=== PATIENT | male | born 1985 | race Caucasian/White ===

== ENCOUNTER 2020-06-01 22:29 | Inpatient (IN) | payer BC ==
[~2020-06-01] VITALS: Ht 165.1 cm; Wt 86.7 kg
[2020-06-01] MEDS ORDERED: ACETAMINOPHEN 325MG TABLET PO STA (23:14)
[2020-06-01] MEDS ORDERED: SODIUM CHLORIDE 0.9% 1,000 ML IV ONE (23:15)
[2020-06-01 23:52] LABS: HEMATOCRIT. 40.3 % (42.0-52.0); HEMOGLOBIN. 13.8 g/dL (14.0-18.0); MEAN CORPUSCULAR VOLUME 87.4 fL (80.0-94.0); MEAN PLATELET VOLUME 7.2 fl (7.4-10.4); PLATELET 317 x1000/uL (130-400); RED BLOOD CELL COUNT 4.61 mill/uL (4.7-6.1); RED CELL DISTRIBUTION WIDTH 13.4 % (11.6-14.6)
[2020-06-01 23:59] LABS: CHLORIDE 109 mEq/L (98-107)
[2020-06-02] MEDS ORDERED: AZITHROMYCIN 500 MG in DEXT 5% WATER 250 ML IV ONE (02:00)
[2020-06-02] MEDS ORDERED: CEFTRIAXONE 1 G PREMIX 50 ML IV ONE (02:00)
[2020-06-02 02:18] LABS: PLATELET ESTIMATE NORMAL
[2020-06-03 01:53] VITALS: BP 131/87
[2020-06-03] MEDS ORDERED: ENOXAPARIN 40MG/0.4ML SYR SUBCUT SCH (02:00)
[2020-06-03] MEDS: CEFTRIAXONE 1,000 MG in DEXTROSE 5% WATER 50 ML IV SCH (02:43)
[2020-06-03] MEDS: AZITHROMYCIN 500MG in DEXTROSE 5% WATER 250ML IV SCH (04:29)
[2020-06-03 05:01] VITALS: BP 125/74
[2020-06-03 08:00] VITALS: BP 124/74
[2020-06-03] MEDS: FAMOTIDINE 20MG TABLET PO SCH ×2 (09:24→17:37)
[2020-06-03] MEDS: DEXAMETHASONE 10 MG/ML VIAL IV SCH (09:25)
[2020-06-03 12:00] VITALS: BP 119/78
[2020-06-03] MEDS ORDERED: HYDROCODONE/ACETAMINOPHEN 5/325MG TABLET PO PRN (16:00)
[2020-06-03] MEDS ORDERED: MAGNESIUM/ALUMINUM HYDROXIDE/SIMETHICONE 30ML UDC PO PRN (16:00)
[2020-06-03] MEDS ORDERED: CLONIDINE 0.1MG TABLET PO PRN (16:00)
[2020-06-03] MEDS ORDERED: DOCUSATE SODIUM 100MG CAPSULE PO PRN (16:00)
[2020-06-03] MEDS ORDERED: ONDANSETRON HCL 4MG/2ML INJ IV PRN (16:00)
[2020-06-03] MEDS ORDERED: ALBUTEROL 6.7GM HFA INHALER ORI PRN (18:00)
[2020-06-03 20:00] VITALS: BP 128/78
[2020-06-03] MEDS: ENOXAPARIN 40MG/0.4ML SYR SUBCUT SCH (20:40)
[2020-06-03 23:58] VITALS: BP 120/77
[2020-06-04] MEDS: CEFTRIAXONE 1,000 MG in DEXTROSE 5% WATER 50 ML IV SCH (01:46)
[2020-06-04 04:00] VITALS: BP 133/82
[2020-06-04] MEDS: AZITHROMYCIN 500MG in DEXTROSE 5% WATER 250ML IV SCH (04:45)
[2020-06-04 06:20] LABS: CHLORIDE 107 mEq/L (98-107)
[2020-06-04 06:26] LABS: PHOSPHORUS 3.5 mg/dL (2.5-4.9)
[2020-06-04 06:31] LABS: HEMATOCRIT. 42.4 % (42.0-52.0); HEMOGLOBIN. 14.6 g/dL (14.0-18.0); MEAN CORPUSCULAR HEMOGLOBIN 30.7 pg (28.0-32.0); MEAN CORPUSCULAR VOLUME 88.8 fL (80.0-94.0); MEAN PLATELET VOLUME 7.2 fl (7.4-10.4); PLATELET 394 x1000/uL (130-400); RED BLOOD CELL COUNT 4.77 mill/uL (4.7-6.1); RED CELL DISTRIBUTION WIDTH 13.9 % (11.6-14.6)
[2020-06-04 06:55] LABS: LDL CHOLESTEROL 70 mg/dL (5-100)
[2020-06-04 06:57] LABS: HDL CHOLESTEROL 27 mg/dL (40-59)
[2020-06-04 08:00] VITALS: BP 117/76
[2020-06-04] MEDS: ASCORBIC ACID 500 MG TABLET PO SCH ×2 (09:06→21:00)
[2020-06-04] MEDS: ZINC SULFATE 220 MG ( 50 ) CAPSULE PO SCH (09:06)
[2020-06-04] MEDS: FAMOTIDINE 20MG TABLET PO SCH ×2 (09:06→18:06)
[2020-06-04] MEDS: DEXAMETHASONE 10 MG/ML VIAL IV SCH (10:32)
[2020-06-04 12:00] VITALS: BP 127/81
[2020-06-04] MEDS ORDERED: GUAIFENESIN-DM 200MG-20MG/10ML UDC PO PRN (13:00)
[2020-06-04 16:00] VITALS: BP 125/77
[2020-06-04] MEDS ORDERED: IVERMECTIN 3 MG TABLET PO NR (18:00)
[2020-06-04] MEDS: BENZONATATE 100MG CAPSULE PO SCH ×2 (18:06→21:48)
[2020-06-04 20:01] VITALS: BP 114/79
[2020-06-04] MEDS: ENOXAPARIN 40MG/0.4ML SYR SUBCUT SCH (21:50)
[2020-06-04 22:43] LABS: PLATELET ESTIMATE NORMAL
[2020-06-05] VITALS: BP 110/74
[2020-06-05] MEDS: CEFTRIAXONE 1,000 MG in DEXTROSE 5% WATER 50 ML IV SCH (02:14)
[2020-06-05 04:06] VITALS: BP 105/73
[2020-06-05] MEDS: BENZONATATE 100MG CAPSULE PO SCH ×3 (05:16→21:06)
[2020-06-05] MEDS: AZITHROMYCIN 500MG in DEXTROSE 5% WATER 250ML IV SCH (05:16)
[2020-06-05 06:57] LABS: CHLORIDE 107 mEq/L (98-107)
[2020-06-05 06:59] LABS: HEMATOCRIT. 41.8 % (42.0-52.0); HEMOGLOBIN. 14.5 g/dL (14.0-18.0); MEAN CORPUSCULAR HEMOGLOBIN 30.5 pg (28.0-32.0); MEAN PLATELET VOLUME 7.1 fl (7.4-10.4); PLATELET 421 x1000/uL (130-400); RED BLOOD CELL COUNT 4.75 mill/uL (4.7-6.1); RED CELL DISTRIBUTION WIDTH 13.8 % (11.6-14.6)
[2020-06-05 08:00] VITALS: BP 114/77
[2020-06-05] MEDS: DEXAMETHASONE 10 MG/ML VIAL IV SCH (08:39)
[2020-06-05] MEDS: ZINC SULFATE 220 MG ( 50 ) CAPSULE PO SCH (08:58)
[2020-06-05] MEDS: ASCORBIC ACID 500 MG TABLET PO SCH ×2 (08:58→21:06)
[2020-06-05] MEDS: FAMOTIDINE 20MG TABLET PO SCH ×3 (09:00→16:45)
[2020-06-05 13:16] LABS: PLATELET ESTIMATE SLIGHTLY INCREASED
[2020-06-05] MEDS ORDERED: THROAT LOZENGES-BENZOCAINE/MENTH/CETYLPYRD CL LOZENGES MM PRN (16:00)
[2020-06-05 20:00] VITALS: BP 111/69
[2020-06-05] MEDS: ENOXAPARIN 40MG/0.4ML SYR SUBCUT SCH (21:06)
[2020-06-06] VITALS: BP 116/81
[2020-06-06] MEDS: CEFTRIAXONE 1,000 MG in DEXTROSE 5% WATER 50 ML IV SCH (01:37)
[2020-06-06 04:00] VITALS: BP 128/76
[2020-06-06] MEDS: BENZONATATE 100MG CAPSULE PO SCH ×3 (05:25→21:40)
[2020-06-06] MEDS: AZITHROMYCIN 500MG in DEXTROSE 5% WATER 250ML IV SCH (05:25)
[2020-06-06 08:00] VITALS: BP 121/75
[2020-06-06] MEDS: ZINC SULFATE 220 MG ( 50 ) CAPSULE PO SCH (08:56)
[2020-06-06] MEDS: ASCORBIC ACID 500 MG TABLET PO SCH ×2 (08:56→21:40)
[2020-06-06] MEDS: FAMOTIDINE 20MG TABLET PO SCH ×2 (08:56→17:31)
[2020-06-06] MEDS: DEXAMETHASONE 10 MG/ML VIAL IV SCH (09:52)
[2020-06-06 12:00] VITALS: BP 112/69
[2020-06-06 16:00] VITALS: BP 115/62
[2020-06-06] MEDS ORDERED: IVERMECTIN 3 MG TABLET PO NR (17:00)
[2020-06-06 20:00] VITALS: BP 115/78
[2020-06-06] MEDS: ENOXAPARIN 40MG/0.4ML SYR SUBCUT SCH (21:40)
[2020-06-07] VITALS: BP 116/74
[2020-06-07 04:00] VITALS: BP 108/61
[2020-06-07] MEDS: BENZONATATE 100MG CAPSULE PO SCH ×2 (05:24→14:42)
[2020-06-07 08:00] VITALS: BP 117/75
[2020-06-07] MEDS: ZINC SULFATE 220 MG ( 50 ) CAPSULE PO SCH (09:45)
[2020-06-07] MEDS: DEXAMETHASONE 10 MG/ML VIAL IV SCH (09:45)
[2020-06-07] MEDS: FAMOTIDINE 20MG TABLET PO SCH ×2 (09:45→18:11)
[2020-06-07] MEDS: ASCORBIC ACID 500 MG TABLET PO SCH ×2 (09:45→21:38)
[2020-06-07 12:00] VITALS: BP 113/72
[2020-06-07 16:00] VITALS: BP 116/71
[2020-06-07 20:00] VITALS: BP 115/67
[2020-06-07] MEDS: ENOXAPARIN 40MG/0.4ML SYR SUBCUT SCH (21:38)
[2020-06-08] VITALS: BP 112/77
[2020-06-08 04:00] VITALS: BP 120/78
[2020-06-08] MEDS: ASCORBIC ACID 500 MG TABLET PO SCH ×2 (10:13→21:22)
[2020-06-08] MEDS: DEXAMETHASONE 10 MG/ML VIAL IV SCH (10:13)
[2020-06-08] MEDS: FAMOTIDINE 20MG TABLET PO SCH ×2 (10:13→18:13)
[2020-06-08] MEDS: ZINC SULFATE 220 MG ( 50 ) CAPSULE PO SCH (10:14)
[2020-06-08 16:00] VITALS: BP 117/83
[2020-06-08 20:00] VITALS: BP 116/65
[2020-06-08] MEDS: ENOXAPARIN 40MG/0.4ML SYR SUBCUT SCH (21:22)
[2020-06-09] VITALS: BP 120/76
[2020-06-09 04:00] VITALS: BP 115/62
[2020-06-09 08:00] VITALS: BP 120/77
[2020-06-09] MEDS: ASCORBIC ACID 500 MG TABLET PO SCH (09:34)
[2020-06-09] MEDS: FAMOTIDINE 20MG TABLET PO SCH ×2 (09:35→16:34)
[2020-06-09] MEDS: ZINC SULFATE 220 MG ( 50 ) CAPSULE PO SCH (09:35)
[2020-06-09] MEDS: DEXAMETHASONE 10 MG/ML VIAL IV SCH (09:35)
[2020-06-09 12:00] VITALS: BP 101/69
[2020-06-09 16:00] VITALS: BP 107/63
[2020-06-09] MEDS ORDERED: IVERMECTIN 3 MG TABLET PO ONE (16:45)
[2020-06-09 20:21] LABS: HEMATOCRIT. 46.1 % (42.0-52.0); MEAN CORPUSCULAR HEMOGLOBIN 30.5 pg (28.0-32.0); MEAN CORPUSCULAR VOLUME 87.7 fL (80.0-94.0); MEAN PLATELET VOLUME 7.5 fl (7.4-10.4); PLATELET 622 x1000/uL (130-400); RED BLOOD CELL COUNT 5.26 mill/uL (4.7-6.1); RED CELL DISTRIBUTION WIDTH 13.6 % (11.6-14.6)
[2020-06-09 20:28] LABS: CHLORIDE 105 mEq/L (98-107)
[2020-06-09] MEDS: ENOXAPARIN 40MG/0.4ML SYR SUBCUT SCH (21:00)
[2020-06-09 22:08] LABS: PLATELET ESTIMATE MARKEDLY INCREASED
[2020-06-10] MEDS: ASCORBIC ACID 500 MG TABLET PO SCH ×3 (00:36→21:42)
[2020-06-10 08:00] VITALS: BP 116/66
[2020-06-10] MEDS: ZINC SULFATE 220 MG ( 50 ) CAPSULE PO SCH (09:28)
[2020-06-10] MEDS: DEXAMETHASONE 10 MG/ML VIAL IV SCH (09:28)
[2020-06-10] MEDS: FAMOTIDINE 20MG TABLET PO SCH ×2 (09:29→16:47)
[2020-06-10 12:00] VITALS: BP 110/61
[2020-06-10] MEDS: BENZONATATE 100MG CAPSULE PO SCH ×2 (13:16→21:42)
[2020-06-10 16:00] VITALS: BP 136/78
[2020-06-10 20:00] VITALS: BP 115/69
[2020-06-10] MEDS: ENOXAPARIN 40MG/0.4ML SYR SUBCUT SCH (21:42)
[2020-06-11] VITALS: BP 111/67
[2020-06-11 04:00] VITALS: BP 114/70
[2020-06-11] MEDS: BENZONATATE 100MG CAPSULE PO SCH ×3 (06:08→22:39)
[2020-06-11 08:00] VITALS: BP 107/77
[2020-06-11] MEDS: ASCORBIC ACID 500 MG TABLET PO SCH ×2 (08:38→22:38)
[2020-06-11] MEDS: DEXAMETHASONE 10 MG/ML VIAL IV SCH (08:38)
[2020-06-11] MEDS: ZINC SULFATE 220 MG ( 50 ) CAPSULE PO SCH (08:38)
[2020-06-11] MEDS: FAMOTIDINE 20MG TABLET PO SCH ×2 (08:38→17:42)
[2020-06-11 16:00] VITALS: BP 116/73
[2020-06-11] MEDS ORDERED: IVERMECTIN 3 MG TABLET PO ONE (16:45)
[2020-06-11 20:00] VITALS: BP 120/70
[2020-06-11] MEDS: ENOXAPARIN 40MG/0.4ML SYR SUBCUT SCH (22:38)
[2020-06-12] VITALS (7 sets, daily range): BP systolic 88–129; BP diastolic 48–77
[2020-06-12] MEDS: BENZONATATE 100MG CAPSULE PO SCH ×2 (05:20→13:45)
[2020-06-12] MEDS: FAMOTIDINE 20MG TABLET PO SCH ×2 (08:40→17:46)
[2020-06-12] MEDS: ZINC SULFATE 220 MG ( 50 ) CAPSULE PO SCH (08:40)
[2020-06-12] MEDS: ASCORBIC ACID 500 MG TABLET PO SCH (08:41)
[2020-06-12] MEDS: DEXAMETHASONE 10 MG/ML VIAL IV SCH (08:41)
[2020-06-12] MEDS: METHYLPREDNISOLONE SOD SUCC 40 MG/ML VIAL IV SCH (17:46)
[2020-06-13] MEDS: BENZONATATE 100MG CAPSULE PO SCH ×4 (00:50→21:25)
[2020-06-13] MEDS: ENOXAPARIN 40MG/0.4ML SYR SUBCUT SCH ×2 (00:51→21:27)
[2020-06-13] MEDS: ASCORBIC ACID 500 MG TABLET PO SCH ×3 (00:51→21:25)
[2020-06-13 04:00] VITALS: BP 115/67
[2020-06-13 08:00] VITALS: BP 112/73
[2020-06-13] MEDS: METHYLPREDNISOLONE SOD SUCC 40 MG/ML VIAL IV SCH ×2 (08:30→17:54)
[2020-06-13] MEDS: ZINC SULFATE 220 MG ( 50 ) CAPSULE PO SCH (08:30)
[2020-06-13] MEDS: FAMOTIDINE 20MG TABLET PO SCH ×2 (08:31→17:53)
[2020-06-13 10:24] LABS: BG BASE EXCESS 0.5 mmol/L (-2.0-2.0); BG CARBOXYHEMOGLOBIN 0.5 % (0.5-1.5); BG DEOXYHEMOGLOBIN 8.1 % (0.0-5.0); BG HCO3 ACT 24.9 mmol/L (22.0-26.0); BG METHEMOGLOBIN 0.2 % (0.0-1.5); BG OXYGEN SATURATION 91.8 % (92.0-98.5); BG OXYHEMOGLOBIN 91.2 % (94.0-97.0); BG PCO2 39.7 mmHg (35.0-45.0); BG PH 7.416 (7.350-7.450); BG PO2 63.1 mmHg (75.0-100.0); BG SAMPLE SITE RIGHT RADIAL; BG TOTAL HEMOGLOBIN 15.4 g/dL (12.0-18.0); BG VENT MODE MASK - NRB
[2020-06-13 12:00] VITALS: BP 127/74
[2020-06-13 16:00] VITALS: BP 126/71
[2020-06-13] MEDS: ACETAMINOPHEN 325MG TABLET PO PRN (17:54)
[2020-06-13 20:00] VITALS: BP 114/75
[2020-06-14] VITALS: BP 116/67
[2020-06-14 04:00] VITALS: BP 120/66
[2020-06-14] MEDS: BENZONATATE 100MG CAPSULE PO SCH ×3 (06:50→21:35)
[2020-06-14 08:00] VITALS: BP 116/74
[2020-06-14] MEDS: ZINC SULFATE 220 MG ( 50 ) CAPSULE PO SCH (08:27)
[2020-06-14] MEDS: ASCORBIC ACID 500 MG TABLET PO SCH ×2 (08:27→21:34)
[2020-06-14] MEDS: FAMOTIDINE 20MG TABLET PO SCH ×2 (08:27→16:16)
[2020-06-14] MEDS: METHYLPREDNISOLONE SOD SUCC 40 MG/ML VIAL IV SCH ×2 (08:27→16:16)
[2020-06-14 12:00] VITALS: BP 133/52
[2020-06-14 16:00] VITALS: BP 122/72
[2020-06-14 20:00] VITALS: BP 123/59
[2020-06-14] MEDS: ENOXAPARIN 30MG/0.3ML SYR SUBCUT SCH (21:35)
[2020-06-15] VITALS: BP 109/68
[2020-06-15 04:00] VITALS: BP 110/61
[2020-06-15] MEDS: BENZONATATE 100MG CAPSULE PO SCH ×3 (06:42→21:49)
[2020-06-15 08:00] VITALS: BP 111/70
[2020-06-15] MEDS: FAMOTIDINE 20MG TABLET PO SCH ×2 (08:20→16:43)
[2020-06-15] MEDS: METHYLPREDNISOLONE SOD SUCC 40 MG/ML VIAL IV SCH ×2 (08:20→16:43)
[2020-06-15] MEDS: ASCORBIC ACID 500 MG TABLET PO SCH ×2 (08:20→21:49)
[2020-06-15] MEDS: ZINC SULFATE 220 MG ( 50 ) CAPSULE PO SCH (08:20)
[2020-06-15] MEDS: ENOXAPARIN 30MG/0.3ML SYR SUBCUT SCH ×2 (08:20→21:50)
[2020-06-15 12:00] VITALS: BP 116/65
[2020-06-15 16:00] VITALS: BP 116/67
[2020-06-15 20:00] VITALS: BP 131/85
[2020-06-16] VITALS: BP 108/56
[2020-06-16 06:00] VITALS: BP 113/62
[2020-06-16] MEDS: BENZONATATE 100MG CAPSULE PO SCH ×3 (06:16→21:56)
[2020-06-16] MEDS: METHYLPREDNISOLONE SOD SUCC 40 MG/ML VIAL IV SCH ×2 (07:48→16:55)
[2020-06-16] MEDS: ZINC SULFATE 220 MG ( 50 ) CAPSULE PO SCH (07:49)
[2020-06-16] MEDS: FAMOTIDINE 20MG TABLET PO SCH ×2 (07:49→16:55)
[2020-06-16] MEDS: ENOXAPARIN 30MG/0.3ML SYR SUBCUT SCH ×2 (07:54→21:56)
[2020-06-16 08:00] VITALS: BP 114/72
[2020-06-16] MEDS: ASCORBIC ACID 500 MG TABLET PO SCH ×2 (08:11→21:55)
[2020-06-16 11:52] VITALS: BP 114/70
[2020-06-16 16:00] VITALS: BP 121/72
[2020-06-16 20:00] VITALS: BP 123/77
[2020-06-17] VITALS: BP 120/71
[2020-06-17 04:00] VITALS: BP 117/71
[2020-06-17] MEDS: BENZONATATE 100MG CAPSULE PO SCH ×3 (06:19→21:36)
[2020-06-17 08:00] VITALS: BP 126/80
[2020-06-17] MEDS: ASCORBIC ACID 500 MG TABLET PO SCH ×2 (09:00→21:35)
[2020-06-17] MEDS: ZINC SULFATE 220 MG ( 50 ) CAPSULE PO SCH (09:32)
[2020-06-17] MEDS: METHYLPREDNISOLONE SOD SUCC 125 MG/2 ML VIAL IV SCH ×2 (09:32→21:35)
[2020-06-17] MEDS: ENOXAPARIN 30MG/0.3ML SYR SUBCUT SCH ×2 (09:32→21:36)
[2020-06-17] MEDS: FAMOTIDINE 20MG TABLET PO SCH ×2 (09:32→17:48)
[2020-06-17 12:00] VITALS: BP 116/74
[2020-06-17 16:00] VITALS: BP 120/71
[2020-06-17 22:00] VITALS: BP 128/77
[2020-06-18 06:00] VITALS: BP 129/75
[2020-06-18] MEDS: BENZONATATE 100MG CAPSULE PO SCH ×3 (06:58→22:29)
[2020-06-18 08:00] VITALS: BP 125/71
[2020-06-18] MEDS: ASCORBIC ACID 500 MG TABLET PO SCH ×3 (08:27→22:28)
[2020-06-18] MEDS: ENOXAPARIN 30MG/0.3ML SYR SUBCUT SCH ×2 (08:27→22:29)
[2020-06-18] MEDS: METHYLPREDNISOLONE SOD SUCC 125 MG/2 ML VIAL IV SCH ×2 (08:27→22:27)
[2020-06-18] MEDS: FAMOTIDINE 20MG TABLET PO SCH ×2 (08:27→16:21)
[2020-06-18] MEDS: ZINC SULFATE 220 MG ( 50 ) CAPSULE PO SCH (08:27)
[2020-06-18 11:57] VITALS: BP 116/73
[2020-06-18 15:57] VITALS: BP 120/73
[2020-06-18 22:00] VITALS: BP 111/68
[2020-06-19 06:00] VITALS: BP 116/73
[2020-06-19] MEDS: BENZONATATE 100MG CAPSULE PO SCH ×3 (06:18→22:31)
[2020-06-19 06:53] LABS: CHLORIDE 108 mEq/L (98-107)
[2020-06-19 07:16] LABS: HEMATOCRIT. 44.5 % (42.0-52.0); HEMOGLOBIN. 15.2 g/dL (14.0-18.0); MEAN CORPUSCULAR HEMOGLOBIN 30.7 pg (28.0-32.0); MEAN PLATELET VOLUME 8.3 fl (7.4-10.4); PLATELET 312 x1000/uL (130-400); RED BLOOD CELL COUNT 4.94 mill/uL (4.7-6.1); RED CELL DISTRIBUTION WIDTH 14.2 % (11.6-14.6)
[2020-06-19 08:00] VITALS: BP 121/77
[2020-06-19] MEDS: ENOXAPARIN 30MG/0.3ML SYR SUBCUT SCH ×2 (08:32→22:02)
[2020-06-19] MEDS: METHYLPREDNISOLONE SOD SUCC 125 MG/2 ML VIAL IV SCH ×2 (08:33→22:02)
[2020-06-19] MEDS: ASCORBIC ACID 500 MG TABLET PO SCH ×2 (08:33→22:02)
[2020-06-19] MEDS: ZINC SULFATE 220 MG ( 50 ) CAPSULE PO SCH (08:33)
[2020-06-19] MEDS: FAMOTIDINE 20MG TABLET PO SCH ×2 (08:33→16:32)
[2020-06-19 12:00] VITALS: BP 114/72
[2020-06-19 16:00] VITALS: BP 122/87
[2020-06-19 17:52] LABS: PLATELET ESTIMATE NORMAL
[2020-06-19 22:00] VITALS: BP 121/71
[2020-06-20 06:00] VITALS: BP 116/75
[2020-06-20] MEDS: BENZONATATE 100MG CAPSULE PO SCH ×3 (06:38→22:07)
[2020-06-20 08:00] VITALS: BP 117/72
[2020-06-20] MEDS: FAMOTIDINE 20MG TABLET PO SCH ×2 (09:06→16:52)
[2020-06-20] MEDS: METHYLPREDNISOLONE SOD SUCC 125 MG/2 ML VIAL IV SCH (09:06)
[2020-06-20] MEDS: ASCORBIC ACID 500 MG TABLET PO SCH ×2 (09:06→20:24)
[2020-06-20] MEDS: ZINC SULFATE 220 MG ( 50 ) CAPSULE PO SCH (09:06)
[2020-06-20] MEDS: ENOXAPARIN 30MG/0.3ML SYR SUBCUT SCH ×2 (10:03→20:41)
[2020-06-20 12:00] VITALS: BP 113/73
[2020-06-20 16:00] VITALS: BP 123/75
[2020-06-20] MEDS: METHYLPREDNISOLONE SOD SUCC 40 MG/ML VIAL IV SCH (20:24)
[2020-06-20 20:47] VITALS: BP 100/64
[2020-06-21 06:00] VITALS: BP 119/65
[2020-06-21] MEDS: BENZONATATE 100MG CAPSULE PO SCH ×3 (06:29→21:07)
[2020-06-21 08:00] VITALS: BP 100/59
[2020-06-21] MEDS: ENOXAPARIN 30MG/0.3ML SYR SUBCUT SCH ×2 (08:23→21:08)
[2020-06-21] MEDS: ZINC SULFATE 220 MG ( 50 ) CAPSULE PO SCH (08:24)
[2020-06-21] MEDS: METHYLPREDNISOLONE SOD SUCC 40 MG/ML VIAL IV SCH ×2 (08:24→21:07)
[2020-06-21] MEDS: FAMOTIDINE 20MG TABLET PO SCH ×2 (08:24→16:46)
[2020-06-21 12:00] VITALS: BP 132/88
[2020-06-21] MEDS: ASCORBIC ACID 500 MG TABLET PO SCH ×2 (12:22→21:07)
[2020-06-21 16:00] VITALS: BP 117/83
[2020-06-21 20:57] VITALS: BP 107/65
[2020-06-22] MEDS: BENZONATATE 100MG CAPSULE PO SCH ×3 (06:26→22:37)
[2020-06-22 08:00] VITALS: BP 117/72
[2020-06-22] MEDS: METHYLPREDNISOLONE SOD SUCC 40 MG/ML VIAL IV SCH ×2 (09:24→22:38)
[2020-06-22] MEDS: ZINC SULFATE 220 MG ( 50 ) CAPSULE PO SCH (09:24)
[2020-06-22] MEDS: ASCORBIC ACID 500 MG TABLET PO SCH ×2 (09:24→22:38)
[2020-06-22] MEDS: FAMOTIDINE 20MG TABLET PO SCH ×2 (09:24→22:38)
[2020-06-22] MEDS: ENOXAPARIN 30MG/0.3ML SYR SUBCUT SCH ×2 (10:14→22:38)
[2020-06-22 12:00] VITALS: BP 124/80
[2020-06-22 16:00] VITALS: BP 119/79
[2020-06-22 20:00] VITALS: BP 118/70
[2020-06-23] VITALS: BP 118/70
[2020-06-23 04:00] VITALS: BP 118/70
[2020-06-23] MEDS: BENZONATATE 100MG CAPSULE PO SCH ×3 (05:58→21:56)
[2020-06-23 08:00] VITALS: BP 127/88
[2020-06-23] MEDS: ZINC SULFATE 220 MG ( 50 ) CAPSULE PO SCH (08:25)
[2020-06-23] MEDS: METHYLPREDNISOLONE SOD SUCC 40 MG/ML VIAL IV SCH ×2 (08:25→20:28)
[2020-06-23] MEDS: ENOXAPARIN 30MG/0.3ML SYR SUBCUT SCH ×2 (08:25→20:29)
[2020-06-23] MEDS: FAMOTIDINE 20MG TABLET PO SCH ×2 (08:26→16:07)
[2020-06-23 11:42] LABS: BG BASE EXCESS 1.8 mmol/L (-2.0-2.0); BG CARBOXYHEMOGLOBIN 0.2 % (0.5-1.5); BG DEOXYHEMOGLOBIN 17.9 % (0.0-5.0); BG FRACTION INSPIRED OXYGEN 21; BG HCO3 ACT 25.5 mmol/L (22.0-26.0); BG METHEMOGLOBIN 0.4 % (0.0-1.5); BG OXYHEMOGLOBIN 81.5 % (94.0-97.0); BG PCO2 37.3 mmHg (35.0-45.0); BG PH 7.452 (7.350-7.450); BG PO2 43.4 mmHg (75.0-100.0); BG SAMPLE SITE RIGHT RADIAL; BG TOTAL HEMOGLOBIN 16.8 g/dL (12.0-18.0); BG VENT MODE ROOM AIR
[2020-06-23 12:00] VITALS: BP 131/94
[2020-06-23] MEDS: ASCORBIC ACID 500 MG TABLET PO SCH ×2 (12:00→20:29)
[2020-06-23] MEDS: ACETAMINOPHEN 325MG TABLET PO PRN (16:53)
[2020-06-23 19:15] VITALS: BP 126/86
[2020-06-23 20:00] VITALS: BP 116/75
[2020-06-24] VITALS (7 sets, daily range): BP systolic 114–134; BP diastolic 70–86
[2020-06-24] MEDS: BENZONATATE 100MG CAPSULE PO SCH ×3 (06:21→21:24)
[2020-06-24] MEDS: ASCORBIC ACID 500 MG TABLET PO SCH ×2 (08:08→21:21)
[2020-06-24] MEDS: ZINC SULFATE 220 MG ( 50 ) CAPSULE PO SCH (08:08)
[2020-06-24] MEDS: FAMOTIDINE 20MG TABLET PO SCH ×2 (08:08→16:46)
[2020-06-24] MEDS: ENOXAPARIN 30MG/0.3ML SYR SUBCUT SCH ×2 (08:08→21:21)
[2020-06-24] MEDS: METHYLPREDNISOLONE SOD SUCC 40 MG/ML VIAL IV SCH (08:32)
[2020-06-24] MEDS: PREDNISONE 20MG TABLET PO SCH (11:36)
[2020-06-25] VITALS: BP 117/72
[2020-06-25 04:00] VITALS: BP 125/77
[2020-06-25] MEDS: BENZONATATE 100MG CAPSULE PO SCH ×3 (06:41→21:28)
[2020-06-25] MEDS: FAMOTIDINE 20MG TABLET PO SCH ×2 (08:22→21:27)
[2020-06-25] MEDS: ENOXAPARIN 30MG/0.3ML SYR SUBCUT SCH ×2 (08:22→21:27)
[2020-06-25] MEDS: PREDNISONE 20MG TABLET PO SCH (08:23)
[2020-06-25] MEDS: ASCORBIC ACID 500 MG TABLET PO SCH ×2 (08:23→21:27)
[2020-06-25 08:28] VITALS: BP 106/69
[2020-06-25] MEDS: ZINC SULFATE 220 MG ( 50 ) CAPSULE PO SCH (08:28)
[2020-06-25 20:15] LABS: BG BASE EXCESS 1.4 mmol/L (-2.0-2.0); BG CARBOXYHEMOGLOBIN 0.5 % (0.5-1.5); BG DEOXYHEMOGLOBIN 15.1 % (0.0-5.0); BG FRACTION INSPIRED OXYGEN 21; BG HCO3 ACT 24.8 mmol/L (22.0-26.0); BG METHEMOGLOBIN 0.3 % (0.0-1.5); BG OXYGEN SATURATION 84.8 % (92.0-98.5); BG OXYHEMOGLOBIN 84.1 % (94.0-97.0); BG PCO2 35.9 mmHg (35.0-45.0); BG PH 7.457 (7.350-7.450); BG PO2 45.9 mmHg (75.0-100.0); BG SAMPLE SITE RIGHT RADIAL; BG TOTAL HEMOGLOBIN 16.9 g/dL (12.0-18.0)
[2020-06-26] VITALS: BP 126/82
[2020-06-26 06:07] LABS: HEMATOCRIT. 44.8 % (42.0-52.0); HEMOGLOBIN. 15.1 g/dL (14.0-18.0); MEAN CORPUSCULAR HEMOGLOBIN 30.9 pg (28.0-32.0); MEAN CORPUSCULAR VOLUME 91.5 fL (80.0-94.0); MEAN PLATELET VOLUME 8.4 fl (7.4-10.4); PLATELET 163 x1000/uL (130-400)
[2020-06-26] MEDS: BENZONATATE 100MG CAPSULE PO SCH ×3 (06:07→20:48)
[2020-06-26 06:27] LABS: CHLORIDE 107 mEq/L (98-107)
[2020-06-26] MEDS: PREDNISONE 20MG TABLET PO SCH (08:27)
[2020-06-26] MEDS: ZINC SULFATE 220 MG ( 50 ) CAPSULE PO SCH (08:27)
[2020-06-26] MEDS: FAMOTIDINE 20MG TABLET PO SCH ×2 (08:27→17:21)
[2020-06-26] MEDS: ASCORBIC ACID 500 MG TABLET PO SCH ×2 (08:28→20:47)
[2020-06-26] MEDS: ENOXAPARIN 30MG/0.3ML SYR SUBCUT SCH (08:28)
[2020-06-26 08:30] VITALS: BP 113/73
[2020-06-26 14:56] LABS: NUCLEATED RED BLOOD CELLS 1 /100 WBC
[2020-06-26 14:57] LABS: PLATELET ESTIMATE NORMAL
[2020-06-26 20:00] VITALS: BP 120/83
[2020-06-27] MEDS: BENZONATATE 100MG CAPSULE PO SCH (06:15)
[2020-06-27 08:00] VITALS: BP 113/76
[2020-06-27] MEDS ORDERED: ENOXAPARIN 40MG/0.4ML SYR SUBCUT SCH (09:00)
[2020-06-27 11:13] VITALS: BP 120/83
[2020-06-27] MEDS: FAMOTIDINE 20MG TABLET PO SCH (11:23)
[2020-06-27] MEDS: PREDNISONE 20MG TABLET PO SCH (11:23)
[2020-06-27] MEDS: ZINC SULFATE 220 MG ( 50 ) CAPSULE PO SCH (11:23)
[2020-06-27] MEDS: ASCORBIC ACID 500 MG TABLET PO SCH (11:24)
== END 2020-06-27 11:30 | disposition home or self-care (01) | DRG 871 ==
LOC: ER 22:29 → EDBD 22:29 → ENRESERV 06-02 20:52 → 7EST 06-03 01:33 → 4WST 06-24 12:59
PROVIDERS: ADMIT Internal Medicine; ATTEND Internal Medicine
DX: A41.89 Other specified sepsis (principal); U07.1 COVID-19; J96.01 Acute respiratory failure with hypoxia; J12.82 Pneumonia due to coronavirus disease 2019; E44.0 Moderate protein-calorie malnutrition; E87.8 Other disorders of electrolyte and fluid balance, not elsewhere classified; I10 Essential (primary) hypertension; R74.01 Elevation of levels of liver transaminase levels; Z68.31 Body mass index [BMI] 31.0-31.9, adult
CPT/HCPCS: 36415; 36600; 71045; 80048; 80053; 80061; 80076; 82375; 82728; 82805; 82962; 83605; 83735; 84100; 84145; 84443; 85025; 85379; 86140; 86141; 87426; 93005; 93970; 96361; 96365; 96367; 99291; C9803; J0456; J0696; J1100; J1642; J1650; J2920; J2930; J7030; J7060; J7512; U0003